=== PATIENT | male | born 1945 | race Hispanic/Latino ===

== ENCOUNTER 2017-04-20 16:53 | Inpatient (IN) | payer MEDICARE, OTHER ==
[2017-04-20 16:55] VITALS: BMI 30.5
[2017-04-20] MEDS ORDERED: Sodium Chloride 0.9% 1,000 ML IV STA ×2 (17:21→21:13)
[2017-04-20] MEDS ORDERED: HYDROmorphone 1 mg/ml ISec IVP STA (17:23)
--- NOTE | 2017-04-20 17:48 | ED PDOC ---
Arrival/HPI - General Chief Complaint: Abdominal Pain Time Seen by Provider: 04/20/17 17:14 Historian: Patient - History of Present Illness Narrative History of Present Illness (Text): 04/20/17 17:48 A 72 year old male, whose past medical history AICD, presents to the emergency department complaining of right upper quadrant abdominal pain. Patient reports 11:00 am today he developed right upper quadrant pain. Notes feels similar to previous hernia. Patient denies smoking and drinking. Patient denies any nausea , vomiting, diarrhea, genitourinary symptoms or any other complaints at this time. Time/Duration: 4-6 hours Symptom Onset: Sudden Symptom Course: Unchanged Activities at Onset: Rest Context: Home Associated Symptoms (Text): 04/20/17 18:53 Previous ventral hernia. Right upper quadrant pain similar to previous hernia. No nausea vomiting or diarrhea. No genitourinary symptoms. No radiation. No chest pain palpitations or dyspnea. He does have a golf ball sized hernia in the right upper quadrant which I am unable to reduce. He did feel better after Dilaudid, I was still unable to reduce the hernia. Past Medical History - Provider Review Nursing Documentation Reviewed: Yes - Infectious Disease Hx of Infectious Diseases: None - Tetanus Immunization Tetanus Immunization: Unknown - Cardiac Hx Cardiac Disorders: (idiopathic cardiomyopathy) Hx Cardiac Arrhythmia: Yes Hx Congestive Heart Failure: Yes Hx Hypertension: Yes Hx Internal Defibrillator: Yes (medtronic) Other/Comment: valvular heart disease - Pulmonary Hx Respiratory Disorders: Yes Hx Pneumonia: Yes - Neurological Hx Neurological Disorder: No - HEENT Hx HEENT Disorder: Yes (eyeglasses, contact lenses) - Renal Hx Renal Disorder: No - Endocrine/Metabolic Hx Endocrine Disorders: Yes Hx Hypothyroidism: Yes - Hematological/Oncological Hx Blood Disorders: No - Integumentary Hx Dermatological Disorder: No - Musculoskeletal/Rheumatological Hx Musculoskeletal Disorders: No Hx Falls: No - Gastrointestinal Hx Gastrointestinal Disorders: Yes (Hx of AP (about age 11); Inguinal Hernia Repair.) - Genitourinary/Gynecological Hx Genitourinary Disorders: No - Psychiatric Hx Psychophysiologic Disorder: No Hx Depression: No Hx Emotional Abuse: No Hx Physical Abuse: No Hx Substance Use: No - Surgical History Hx Appendectomy: Yes (1959 [facility]) Hx Cardiac Catheterization: Yes Other/Comment: tonsillectomy 1953 [facility] right knee cap reconstruction [address] [facility] [place] dr lazarus morrison spinal fusion c 3 4 5 [facility] tx dr coon, icd implantation 1997 [facility] [place] dr lyric young, icd replacement 2009 [facility] [place] robert franklin ablation 2012 [facility] [place] robert franklin icd replacement 2013 [facility] [place] robert franklin, ablation 2013 [facility] [place] robert franklin, [facility] catherization [address] [facility] [address] noreen celestin - Anesthesia Hx Anesthesia: Yes Hx Anesthesia Reactions: Yes (Coma) Hx Malignant Hyperthermia: No - Suicidal Assessment Feels Threatened In Home Enviroment: No Family/Social History - Physician Review Nursing Documentation Reviewed: Yes Family/Social History: Unknown Family HX Smoking Status: Never Smoked Hx Alcohol Use: No Hx Substance Use: No Hx Substance Use Treatment: No Allergies/Home Meds Allergies/Adverse Reactions: Allergies morphine Allergy (Verified 04/20/17 17:07) .hallucinations Home Medications: Home Meds Medication Instructions Recorded Confirmed Amiodarone [Cordarone] 200 mg PO DAILY 06/02/12 04/20/17 Aspirin [Aspir 81] 81 mg PO DAILY 06/02/12 04/20/17 Mexiletine 200 mg PO TID 07/20/12 04/20/17 Atorvastatin [Lipitor] 20 mg PO DAILY 01/31/14 04/20/17 Levothyroxine [Synthroid] 0.025 mg PO DAILY 12/05/14 04/20/17 Carvedilol [Coreg] 25 mg PO BID 03/06/16 04/20/17 Digoxin [Lanoxin] 0.125 mg PO DAILY 03/06/16 04/20/17 Furosemide [Lasix] 80 mg PO .EVENING 03/06/16 04/20/17 Zolpidem [Ambien] 10 mg PO HS PRN 03/06/16 04/20/17 Review of Systems - Physician Review All systems were reviewed & negative as marked: Yes - Review of Systems Gastrointestinal: Abdominal Pain (RUQ). absent: Diarrhea, Nausea, Vomiting Genitourinary Male: absent: Dysuria, Frequency, Hematuria Physical Exam Vital Signs Reviewed: Yes Vital Signs Temp Pulse Resp BP Pulse Ox 04/20/17 17:03 98.4 F 73 16 140/72 98 Temperature: Afebrile Blood Pressure: Normal Pulse: Regular Respiratory Rate: Normal Appearance: Positive for: Well-Appearing, Non-Toxic, Uncomfortable Pain Distress: Mild Mental Status: Positive for: Alert and Oriented X 3 - Systems Exam Head: Present: Atraumatic, Normocephalic Pupils: Present: PERRL Extroacular Muscles: Present: EOMI Conjunctiva: Present: Normal Mouth: Present: Moist Mucous Membranes Pharnyx: No: ERYTHEMA, EXUDATE, TONSILS ENLARGED Neck: Present: Normal Range of Motion Respiratory/Chest: Present: Clear to Auscultation, Good Air Exchange. No: Respiratory Distress, Accessory Muscle Use Cardiovascular: Present: Regular Rate and Rhythm, Normal S1, S2. No: Murmurs Abdomen: Present: Tenderness, Normal Bowel Sounds, Hernias (golf ball sized incisional hernia in RUQ, unable to reduce with moderate tenderness). No: Distention, Peritoneal Signs, Rebound, Guarding Back: Present: Normal Inspection Upper Extremity: Present: Normal Inspection. No: Cyanosis, Edema Lower Extremity: Present: Normal Inspection. No: Edema Neurological: Present: GCS=15, CN II-XII Intact, Speech Normal, Motor Func Grossly Intact Skin: Present: Warm, Dry, Normal Color. No: Rashes Psychiatric: Present: Alert, Oriented x 3, Normal Insight, Normal Concentration Medical Decision Making ED Course and Treatment: 04/20/17 17:46 Impression: A 72 year old male with right upper quadrant abdominal pain. Plan: -- EKG -- chest xray -- CT abd/pelvis -- labs -- Urinalysis -- IV fluids, Zofran, Dilaudid -- Reassess and disposition Prior Visits: Notes and results from previous visits were reviewed. Patient was last seen in the emergency department on 03/06/16 for evaluation of dizziness and generalized weakness. Progress Notes: 04/20/17 18:22 CT Abdomen and Pelvis without Oral or IV contrast Creator : Carol Calhoun MD IMPRESSION: Fluid-filled dilated small bowel loops with decompressed small bowel loops distally; appearance concerning for small bowel obstruction. Correlate clinically. Extensive diverticulosis without CT evidence of acute diverticulitis. Moderate constipation. 16 mm fat containing right ventral hernia. 10 mm fat containing midline ventral hernia. Gastroesophageal reflux. Additional findings as above. 04/20/17 19:02 EKG is pacing rate approximately 60 04/20/17 19:33 Dr. Barone will see the patient in consultation - Lab Interpretations Lab Results: 04/20/17 17:43 04/20/17 17:43 Lab Results 04/20/17 17:43: Sodium 139, Potassium 4.4, Chloride 98, Carbon Dioxide 33, Anion Gap 13, BUN 30 H, Creatinine 1.8 H, Est GFR ( Amer) 45, Est GFR ( Non-Af Amer) 37, Random Glucose 117 H, Calcium 9.9, Total Bilirubin 0.6, AST 31 , ALT 29, Alkaline Phosphatase 110, Lactate Dehydrogenase 716 H, Total Creatine Kinase 67, Troponin I 0.02, Total Protein 8.5 H, Albumin 4.6, Globulin 3.9, Albumin/Globulin Ratio 1.2, Lipase 48 04/20/17 17:43: PT 13.0 H, INR 1.19 H, APTT 29.1 04/20/17 17:43: WBC 14.1 H D, RBC 4.34, Hgb 14.3, Hct 43.2, MCV 99.5, MCH 32.9, MCHC 33.1, RDW 14.4, Plt Count 290, MPV 10.4, Gran % 76.7 H, Lymph % (Auto) 14.3 L, Rabun % (Auto) 7.2 H, Eos % (Auto) 1.6, Baso % (Auto) 0.2, Gran # 10.82 H , Lymph # 2.0, Rabun # 1.0 H, Eos # 0.2, Baso # 0.03 I have reviewed the lab results: Yes - RAD Interpretation Radiology Orders: 04/20/17 17:21 ABD & PELVIS W/O PO OR IV CONT [CT] Stat 04/20/17 17:22 CHEST PORTABLE [RAD] Stat - EKG Interpretation Interpreted by ED Physician: Yes Type: 12 lead EKG - Medication Orders Current Medication Orders: Sodium Chloride (Sodium Chloride 0.9%) 1,000 mls @ 100 mls/hr IV .Q10H STA Stop: 04/21/17 03:20 Last Admin: 04/20/17 17:56 Dose: 100 mls/hr eMAR Start Stop Document 04/20/17 17:56 MS (Rec: 04/20/17 17:56 [place] [id number] Intravenous Solution Start Date 04/20/17 Start Time 17:40 End Date 04/20/17 End time 18:40 Total Infusion Time 60 Discontinued Medications Hydromorphone HCl (Dilaudid) 1 mg IVP STAT STA Stop: 04/20/17 17:24 Last Admin: 04/20/17 17:40 Dose: 1 mg MAR Pain Assessment Document 04/20/17 17:40 MS (Rec: 04/20/17 17:[address] [email or web address] Pain Reassessment Is this a pain reassessment? Yes Sleep Is patient sleeping during reassessment? No Presence of Pain Presence of Pain Yes Pain Scale Used Pain Scale Used Numeric Location Left, Right or Bilateral Right Upper or Lower Upper Pain Location Body Site Abdomen Description Description Intermittent Intensity of Pain at present 8 Pain Behavior Guarding Withdrawal from Touch Aggravating Factors Changing Position IVP Administration Document 04/20/17 17:40 MS (Rec: 04/20/17 17:57 MS [id number] Charges for Administration # of IVP Administrations 1 Ondansetron HCl (Zofran Inj) 4 mg IVP STAT STA Stop: 04/20/17 17:22 Last Admin: 04/20/17 17:40 Dose: 4 mg IVP Administration Document 04/20/17 17:40 MS (Rec: 04/20/17 17:[address] [id number] Charges for Administration # of IVP Administrations 1 - Scribe Statement The provider has reviewed the documentation as recorded by the Robert Aguilar Provider Scribe Attestation: All medical record entries made by the Scribe were at my direction and personally dictated by me. I have reviewed the chart and agree that the record accurately reflects my personal performance of the history, physical exam, medical decision making, and the department course for this patient. I have also personally directed, reviewed, and agree with the discharge instructions and disposition. Disposition/Present on Arrival - Present on Arrival Any Indicators Present on Arrival: No History of DVT/PE: No History of Uncontrolled Diabetes: No Urinary Catheter: No History of Decub. Ulcer: No History Surgical Site Infection Following: None - Disposition Have Diagnosis and Disposition been Completed?: Yes Diagnosis: Ventral hernia, Ventral hernia with bowel obstruction Disposition: HOSPITALIZED Disposition Time: 19:30 Patient Plan: Admission Patient Problems: Current Active Problems Problem Status Onset Ventral hernia Acute Ventral hernia with bowel obstruction Acute Condition: GOOD Referrals: Carlos Sifuentes MD [Primary Care Provider] - Follow up with primary Forms: [employer] (Scottish)
[2017-04-20 17:54] LABS: BASO # 0.03 K/mm3 (0.0-2.0); BASO % 0.2 % (0.0-3.0); EOS # 0.2 (0.0-0.7); EOS % 1.6 % (1.5-5.0); GRAN # 10.82 (1.4-6.5); GRAN % 76.7 % (50.0-68.0); HEMATOCRIT 43.2 % (42.0-52.0); LYMPH % 14.3 % (22.0-35.0); MEAN CELL VOLUME 99.5 fl (80.0-105.0); MEAN CORPUSCULAR HEMOGLOBIN 32.9 pg (25.0-35.0); MEAN CORPUSCULAR HGB CONC 33.1 g/dl (31.0-37.0); MEAN PLATELET VOLUME 10.4 fl (7.0-11.0); MONO % 7.2 % (1.0-6.0); RED CELL DISTRIBUTION WIDTH 14.4 % (11.5-14.5); WHITE BLOOD COUNT 14.1 10^3/ul (4.5-11.0)
[2017-04-20 18:08] LABS: INR 1.19 (0.93-1.08); PARTIAL THROMBOPLASTIN TIME 29.1 Seconds (25.1-36.5)
[2017-04-20 18:14] LABS: TROPONIN I 0.02 ng/mL
[2017-04-20 18:20] LABS: ALB/GLOB RATIO 1.2 (1.1-1.8); BILIRUBIN,TOTAL 0.6 mg/dL (0.2-1.3); CALCIUM 9.9 mg/dL (8.4-10.5); POTASSIUM 4.4 mmol/L (3.6-5.0); TOTAL PROTEIN 8.5 g/dL (5.8-8.3)
--- NOTE | 2017-04-20 18:20 | CT ---
PROCEDURE: CT Abdomen and Pelvis without Oral or IV contrast. HISTORY: ventral hernia COMPARISON: None available. TECHNIQUE: Contiguous axial images of the abdomen and pelvis. No oral or IV contrast administered. Coronal and Sagittal reformats generated. Radiation dose: Total exam DLP = 903.90 mGy-cm. This CT exam was performed using one or more of the following dose reduction techniques: Automated exposure control, adjustment of the mA and/or kV according to patient size, and/or use of iterative reconstruction technique. FINDINGS: There is limited evaluation of the solid organs without the administration of IV contrast. LOWER THORAX: No visible consolidation, pleural effusion, or pneumothorax. Partially imaged cardiac pacer wires. LIVER: Unremarkable unenhanced appearance. GALLBLADDER AND BILE DUCTS: Unremarkable unenhanced appearance. PANCREAS: Unremarkable unenhanced appearance. SPLEEN: Unremarkable unenhanced appearance. ADRENALS: Unremarkable unenhanced appearance. KIDNEYS AND URETERS: No hydronephrosis or obstructing renal calculus. Punctate nonobstructing bilateral renal calcifications. BLADDER: The urinary bladder appears unremarkable. REPRODUCTIVE: Prostate calcifications. APPENDIX: The appendix is not identified. No secondary signs of acute appendicitis. BOWEL: The stomach is nondistended. Lack of oral contrast limits evaluation for bowel pathology. Fluid-filled dilated small bowel loops with decompressed small bowel loops distally; appearance concerning for small bowel obstruction. Extensive diverticulosis without CT evidence of acute diverticulitis. Moderate constipation. PERITONEUM: No significant free fluid. No definite free air. LYMPH NODES: No bulky lymphadenopathy identified. VASCULATURE: No aortic aneurysm. BONES: Degenerative changes of the spine. OTHER FINDINGS: 16 mm fat containing right ventral hernia. 10 mm fat containing midline ventral hernia. Gastroesophageal reflux. IMPRESSION: Fluid-filled dilated small bowel loops with decompressed small bowel loops distally; appearance concerning for small bowel obstruction. Correlate clinically. Extensive diverticulosis without CT evidence of acute diverticulitis. Moderate constipation. 16 mm fat containing right ventral hernia. 10 mm fat containing midline ventral hernia. Gastroesophageal reflux. Additional findings as above.
--- NOTE | 2017-04-20 20:34 | CP.PCM.HP ---
History of Present Illness - History of Present Illness History of Present Illness: CC: Abdominal Pain Subjective: HPI: Patient is a 72 year old male with a past medical history includes AICD, idiopathic cardiomyopathy, hx of ventricular tachycardia with syncope, s/p ablation therapy, MR, CHF, HTN, HLD, hypothyroidism, pna, who presents to the emergency department for evaluation and treatment of abdominal pain localized to the ventral region superior to the umbilicus. States the pain began at noon after eating lunch around noon. Denies N/V. Experienced nonbloody BM this morning. States he felt hernia redevelop over the past year and a half but experienced no symptoms until today. Patient denies intractable headache, fever, chills, dizziness, blurry vision, ringing in the ears, chest pain, shortness of breath, nausea, vomiting, diarrhea, constipation, and urinary symptoms. 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 spironolactone PMD: Dr. Sifuentes Cardio: Dr. Re[facility] Health Unit Clerk: [facility] Physical Examination: - Constitutional Appears: Non-toxic, No Acute Distress - Head Exam Head Exam: atraumatic, normocephalic - Eye Exam Eye Exam: Normal appearance, PERRL. absent: Scleral icterus - ENT Exam ENT Exam: Mucous Membranes Moist - Neck Exam Neck exam: Normal Inspection - Respiratory Exam Respiratory Exam: Normal Breathing Pattern - Cardiovascular Exam Cardiovascular Exam: +S1, +S2. absent: Gallop, JVD - GI/Abdominal Exam GI & Abdominal Exam: ventral hernia non reducible, Tender to palpation, positive guarding - Extremities Exam Extremities exam: Negative for: calf tenderness - Neurological Exam Neurological exam: Patient is awake, alert, responds to verbal stimuli, answers questions appropriately, follows commands, and moves extremities past midline - Psychiatric Exam Psychiatric exam: Normal Affect, Normal Mood - Skin Skin Exam: warm and dry Assessment and Plan: Patient is a 72 year old male with a past medical history includes AICD, idiopathic cardiomyopathy, hx of ventricular tachycardia with syncope, s/p ablation therapy, MR, CHF, HTN, HLD, hypothyroidism, pna, who presents to the emergency department for evaluation and treatment of right upper quadrant abdominal pain. Abdominal Pain; SBO - CT of the abdomen/ pelvis- reviewed and appreciated - Fluid-filled dilated small bowel loops with decompressed small bowel loops distally; appearance concerning for small bowel obstruction. Extensive diverticulosis without CT evidence of acute diverticulitis. Moderate constipation. 16 mm fat containing right ventral hernia. 10 mm fat containing midline ventral hernia. Gastroesophageal reflux - NPO - IVF NS @ 60 due to CHF low EF - general surgery consulted- appreciate recommendations - prn zofran Idiopathic cardiomyopathy, hx of ventricular tachycardia with syncope, s/p ablation therapy, MR - HR and BP reviewed, trended, and appreciated - continue home amiodarone, coreg, digoxin, mexiletine with holding parameters - cardiology consulted- appreciate recommendations Chronic CHF - HR and BP reviewed, trended, and appreciated - strict i and o - daily weight - hold lasix and spironolactone to IVF - previous ECHO reviewed and appreciated-- LVEF 16%, LV severely dilated, severe global hypokinesis; repeat ECHO per cardiology - consider repeating CXR/ attaining chest CT pending patient clinical course ANNAMARIA - creatinine and Bun reviewed, trended, and appreciated - avoid nephrotoxins - continue IVF NS @ 60 - consider nephrology consult pending patients clinical course Hx of CAD - c/w aspirin - c/w statin Hx of Htn - c/w coreg e with holding parameters Hx of Hyperlipidemia - c/w statin - lipid profile pending Hx of Hypothyroidism - continue with home synthroid - TSH pending Hx of Insomina - hold home Ambien as patient will be receiving dilaudid as well Prophylaxis - DVT ppx- subq heparin + SCD as per daisy score - GI ppx- famotidine Patient case discussed with and plan approved by attending physician. 04/20/17 20:22 Present on Admission - Present on Admission Any Indicators Present on Admission: No Past Patient History - Infectious Disease Hx of Infectious Diseases: None - Tetanus Immunizations Tetanus Immunization: Unknown - Past Social History Smoking Status: Never Smoked - CARDIAC Hx Cardiac Disorders: (idiopathic cardiomyopathy) Hx Cardia Arrhythmia: Yes Hx Congestive Heart Failure: Yes Hx Hypertension: Yes Hx Internal Defibrillator: Yes (medtronic) Other/Comment: valvular heart disease - PULMONARY Hx Respiratory Disorders: Yes Hx Pneumonia: Yes - NEUROLOGICAL Hx Neurological Disorder: No - HEENT Hx HEENT Problems: Yes (eyeglasses, contact lenses) - RENAL Hx Chronic Kidney Disease: No - ENDOCRINE/METABOLIC Hx Endocrine Disorders: Yes Hx Hypothyroidism: Yes - HEMATOLOGICAL/ONCOLOGICAL Hx Blood Disorders: No - INTEGUMENTARY Hx Dermatological Problems: No - MUSCULOSKELETAL/RHEUMATOLOGICAL Hx Musculoskeletal Disorders: No Hx Falls: No - GASTROINTESTINAL Hx Gastrointestinal Disorders: Yes (Hx of AP (about age 11); Inguinal Hernia Repair.) - GENITOURINARY/GYNECOLOGICAL Hx Genitourinary Disorders: No - PSYCHIATRIC Hx Psychophysiologic Disorder: No Hx Depression: No Hx Emotional Abuse: No Hx Physical Abuse: No Hx Substance Use: No - SURGICAL HISTORY Hx Appendectomy: Yes (1959 [facility]) Hx Cardiac Catheterization: Yes Other/Comment: tonsillectomy 1953 [facility] right knee cap reconstruction 1987 [facility] dr lazarus morrison spinal fusion c 3 [address] [facility] [address] coon, icd implantation [address] [facility] [place] lyric young, [place] 2009 [facility] [place] 2012 [facility] [place]d [place] 2013 [facility] [place]lin, [place] 2013 [facility] [place]lin, [place] catherization [address] [facility] [address] noreen celestin - ANESTHESIA Hx Anesthesia: Yes Hx Anesthesia Reactions: Yes (Coma) Hx Malignant Hyperthermia: No Meds Allergies/Adverse Reactions: Allergies Allergy/AdvReac Type Severity Reaction Status Date / Time morphine Allergy .hallucinat Verified 04/20/17 17:07 ions Results - Vital Signs Recent Vital Signs: Last Vital Signs Temp 98.4 F 04/20/17 17:03 Pulse 62 04/20/17 20:10 Resp 14 04/20/17 20:20 BP 109/54 L 04/20/17 20:10 Pulse Ox 94 L 12/11/17 20:20 - Labs Result Diagrams: 04/20/17 17:43 04/20/17 17:43 Labs: Laboratory Results - last 24 hr 04/20/17 04/20/17 04/20/17 17:43 17:43 17:43 WBC 14.1 H D RBC 4.34 Hgb 14.3 Hct 43.2 MCV 99.5 MCH 32.9 MCHC 33.1 RDW 14.4 Plt Count 290 MPV 10.4 Gran % 76.7 H Lymph % (Auto) 14.3 L Starke % (Auto) 7.2 H Eos % (Auto) 1.6 Baso % (Auto) 0.2 Gran # 10.82 H Lymph # 2.0 Starke # 1.0 H Eos # 0.2 Baso # 0.03 PT 13.0 H INR 1.19 H APTT 29.1 Sodium 139 Potassium 4.4 Chloride 98 Carbon Dioxide 33 Anion Gap 13 BUN 30 H Creatinine 1.8 H Est GFR ( Amer) 45 Est GFR (Non-Af Amer) 37 Random Glucose 117 H Calcium 9.9 Total Bilirubin 0.6 AST 31 ALT 29 Alkaline Phosphatase 110 Lactate Dehydrogenase 716 H Total Creatine Kinase 67 Troponin I 0.02 Total Protein 8.5 H Albumin 4.6 Globulin 3.9 Albumin/Globulin Ratio 1.2 Lipase 48
--- NOTE | 2017-04-20 21:54 | CP.PCM.CON ---
History of Present Illness - History of Present Illness History of Present Illness: Surgery Consult: Dr. Barone Pt is a 72M with PMHx significant for CHF, idiopathic cardiomyopathy, ventricular tachycardia s/p AICD, MR, HLD & hypothyroidism who presents to [facility] with complaints of abdominal pain. Pt states he was having lunch earlier today and had a sudden bout of sharp abdominal pain where his ventral hernia is located. Pt reports having ventral hernia repaired in 2007, however, states it recurred over the last year. Pt denies having symptoms for the past year and states his hernia would bulge out upon bearing down but otherwise it did not bother him until earlier today. He denies any associated N/V, F/C. States his last BM was this morning and admits to flatus. In the ER, a CT abdomen pelvis was obtained and shows fat containing ventral hernia. Surgery consulted to evaluate. Currently, pt is walking around his room and states he's feeling a lot better compared to when he arrived. States pain medication given in the ER helped. Admits to discomfort in the anterior abdomen around ventral hernia. Denies any other complaints. PMHx: as stated above PSHx: AICD placement, ventral hernia repair, appendectomy, tonsillectomy SocialHx: denies smoking or EtOH Review of Systems - Review of Systems All systems: reviewed and no additional remarkable complaints except (as per HPI ) Past Patient History - Infectious Disease Hx of Infectious Diseases: None - Tetanus Immunizations Tetanus Immunization: Unknown - Past Social History Smoking Status: Never Smoked - CARDIAC Hx Cardiac Disorders: (idiopathic cardiomyopathy) Hx Cardia Arrhythmia: Yes Hx Congestive Heart Failure: Yes Hx Hypertension: Yes Hx Internal Defibrillator: Yes (medtronic) Other/Comment: valvular heart disease - PULMONARY Hx Respiratory Disorders: Yes - NEUROLOGICAL Hx Neurological Disorder: No - HEENT Hx HEENT Problems: Yes (eyeglasses, contact lenses) - ENDOCRINE/METABOLIC Hx Endocrine Disorders: Yes Hx Hypothyroidism: Yes - HEMATOLOGICAL/ONCOLOGICAL Hx Blood Disorders: No - INTEGUMENTARY Hx Dermatological Problems: No - MUSCULOSKELETAL/RHEUMATOLOGICAL Hx Musculoskeletal Disorders: No Hx Falls: No - GENITOURINARY/GYNECOLOGICAL Hx Genitourinary Disorders: No - PSYCHIATRIC Hx Psychophysiologic Disorder: No Hx Depression: No Hx Emotional Abuse: No Hx Physical Abuse: No Hx Substance Use: No - SURGICAL HISTORY Hx Surgeries: Yes Hx Appendectomy: Yes Hx Cardiac Catheterization: Yes Hx Herniorrhaphy: Yes Hx Tonsillectomy: Yes - ANESTHESIA Hx Anesthesia: Yes Hx Anesthesia Reactions: Yes (Coma) Hx Malignant Hyperthermia: No Meds Allergies/Adverse Reactions: Allergies Allergy/AdvReac Type Severity Reaction Status Date / Time morphine Allergy .robertoinat Verified 04/20/17 17:07 ions - Medications Medications: Current Medications Amiodarone HCl (Cordarone) 200 mg PO DAILY [facility] Aspirin (Ecotrin) 81 mg PO DAILY [facility] Atorvastatin Calcium (Lipitor) 20 mg PO DAILY [facility] Carvedilol (Coreg) 25 mg PO BID [facility] Digoxin (Lanoxin) 0.125 mg PO DAILY [facility] Famotidine (Pepcid) 20 mg IVP DAILY [facility] Heparin Sodium (Porcine) (Heparin) 5,000 units SC Q8 [facility] PRN Reason: Protocol Hydromorphone HCl (Dilaudid) 0.5 mg IVP Q6H PRN PRN Reason: Pain, moderate (4-7) Sodium Chloride (Sodium Chloride 0.9%) 1,000 mls @ 60 mls/hr IV .[id number] STA Stop: 04/21/17 13:52 Levothyroxine Sodium (Synthroid) 50 mcg PO ACB [facility] Non-Formulary Medication (Mexiletine [Mexiletine]) 200 mg PO TID [facility] Ondansetron HCl (Zofran Inj) 4 mg IVP Q6H PRN PRN Reason: Nausea/Vomiting Physical Exam - Constitutional Appears: Well, No Acute Distress - Head Exam Head Exam: ATRAUMATIC, NORMOCEPHALIC - Eye Exam Eye Exam: Normal appearance - ENT Exam ENT Exam: Mucous Membranes Moist - Respiratory Exam Respiratory Exam: NORMAL BREATHING PATTERN - Cardiovascular Exam Cardiovascular Exam: RRR - GI/Abdominal Exam GI & Abdominal Exam: Soft, Tenderness (around incarcerated ventral hernia ). absent: Distended, Guarding, Rebound - Neurological Exam Neurological exam: Alert, Oriented x3 - Skin Skin Exam: Dry, Warm Results - Vital Signs Recent Vital Signs: Last Vital Signs Temp 98.4 F 04/20/17 17:03 Pulse 62 04/20/17 20:10 Resp 14 04/20/17 20:20 BP 109/54 L 04/20/17 20:10 Pulse Ox 94 L 04/20/17 20:20 - Labs Result Diagrams: 04/20/17 17:43 04/20/17 17:43 - Imaging and Cardiology CT scan - abdomen Status: Image reviewed by me, Report reviewed by me Assessment & Plan - Assessment and Plan (Free Text) Assessment: 72M with incarcerated ventral hernia Plan: - At this time, pt is not clinically obstructed & not actively vomiting. Will hold off on NGT unless he becomes symptomatic - Apply Ice pack to ventral hernia - Serial abdominal exams - NPO, IVF, pain management - Will need surgical repair of hernia defect. However, due to his extensive cardiac hx will need risk stratification by cardio - Recommend Dulcolax suppository PRN for relief of constipation - d/w Dr. Abisai Erazo, PGY-3 Surgery
[2017-04-20] MEDS: HYDROmorphone 0.5 mg/0.5 ml ISec IVP PRN (22:21)
[2017-04-21] MEDS ORDERED: HYDROmorphone 0.5 mg/0.5 ml ISec IVP STA (00:41)
[2017-04-21] MEDS: HYDROmorphone 0.5 mg/0.5 ml ISec IVP PRN (04:04)
[2017-04-21 06:55] LABS: BASO # 0.02 K/mm3 (0.0-2.0); BASO % 0.2 % (0.0-3.0); EOS # 0.1 (0.0-0.7); GRAN # 9.99 (1.4-6.5); GRAN % 79.2 % (50.0-68.0); HEMATOCRIT 41.9 % (42.0-52.0); LYMPH # 1.4 (1.2-3.4); LYMPH % 11.4 % (22.0-35.0); MEAN CELL VOLUME 100.2 fl (80.0-105.0); MEAN CORPUSCULAR HEMOGLOBIN 32.3 pg (25.0-35.0); MEAN CORPUSCULAR HGB CONC 32.2 g/dl (31.0-37.0); MEAN PLATELET VOLUME 10.1 fl (7.0-11.0); MONO % 8.2 % (1.0-6.0); RED CELL DISTRIBUTION WIDTH 14.1 % (11.5-14.5); WHITE BLOOD COUNT 12.6 10^3/ul (4.5-11.0)
[2017-04-21 07:19] LABS: ALB/GLOB RATIO 1.2 (1.1-1.8); ALKALINE PHOSPHATASE 104 U/L (38-126); ALT/SGPT 30 U/L (7-56); AST/SGOT 25 U/L (17-59); BILIRUBIN,TOTAL 0.6 mg/dL (0.2-1.3); BLOOD UREA NITROGEN 24 mg/dL (7-21); CALCIUM 9.7 mg/dL (8.4-10.5); CARBON DIOXIDE 32 mmol/L (21-33); CHLORIDE 101 mmol/L (98-107); CHOLESTEROL 155 mg/dL (130-200); GFR AFRICAN-AMERICAN > 60; GLUCOSE,RANDOM 140 mg/dL (70-110); POTASSIUM 4.6 mmol/L (3.6-5.0); SODIUM 144 mmol/L (132-148); TOTAL PROTEIN 7.8 g/dL (5.8-8.3)
--- NOTE | 2017-04-21 08:05 | CP.PCM.PN ---
Subjective - Date & Time of Evaluation Date of Evaluation: 04/21/17 Time of Evaluation: 08:02 - Subjective Subjective: Surgery Progress Note for Dr. Barone Pt seen and examined at bedside. Pt states that he still has some abdominal pain , but admits to vomiting several times this AM. Pt denied CP, SOB, diarrhea, constipation, fever, chills, GERBER, or dizziness. Objective - Vital Signs/Intake and Output Vital Signs (last 24 hours): Temp Pulse Resp BP Pulse Ox 98.4 F 60 19 139/81 94 L 04/21/17 00:35 04/21/17 00:35 04/21/17 00:35 04/21/17 00:35 04/20/17 20:20 Intake and Output: 04/21/17 04/21/17 06:59 18:59 Intake Total 0 Output Total 200 Balance -200 - Medications Medications: Current Medications Amiodarone HCl (Cordarone) 200 mg PO DAILY [facility] Aspirin (Ecotrin) 81 mg PO DAILY [facility] Atorvastatin Calcium (Lipitor) 20 mg PO DAILY [facility] Carvedilol (Coreg) 25 mg PO BID [facility] Digoxin (Lanoxin) 0.125 mg PO DAILY [facility] Heparin Sodium (Porcine) (Heparin) 5,000 units SC Q8 [facility] PRN Reason: Protocol Last Admin: 04/20/17 22:21 Dose: 5,000 units Hydromorphone HCl (Dilaudid) 0.5 mg IVP Q6H PRN PRN Reason: Pain, moderate (4-7) Last Admin: 04/21/17 04:04 Dose: 0.5 mg Sodium Chloride (Sodium Chloride 0.9%) 1,000 mls @ 60 mls/hr IV .[id number] STA Stop: 04/21/17 13:52 Last Admin: 04/21/17 00:50 Dose: 60 mls/hr Levothyroxine Sodium (Synthroid) 50 mcg PO ACB [facility] Non-Formulary Medication (Mexiletine [Mexiletine]) 200 mg PO TID [facility] Ondansetron HCl (Zofran Inj) 4 mg IVP Q6H PRN PRN Reason: Nausea/Vomiting Last Admin: 04/21/17 00:54 Dose: 4 mg - Labs Labs: 04/21/17 06:15 04/21/17 06:15 PT 13.0 SECONDS (9.4-12.5) H 12/11/17 17:43 INR 1.19 (0.93-1.08) H 04/20/17 17:43 APTT 29.1 Seconds (25.1-36.5) 04/20/17 17:43 - Constitutional Appears: No Acute Distress - Head Exam Head Exam: NORMAL INSPECTION - Eye Exam Eye Exam: Normal appearance Pupil Exam: NORMAL ACCOMODATION - ENT Exam ENT Exam: Normal Exam - Neck Exam Neck Exam: Normal Inspection - Respiratory Exam Respiratory Exam: NORMAL BREATHING PATTERN. absent: Accessory Muscle Use, Respiratory Distress - Cardiovascular Exam Cardiovascular Exam: RRR. absent: Gallop, Rubs, Murmur - GI/Abdominal Exam GI & Abdominal Exam: Soft, Tenderness (around incarcerated ventral hernia). absent: Distended, Guarding, Rebound - Extremities Exam Extremities Exam: Normal Inspection - Neurological Exam Neurological Exam: Alert, Awake, Oriented x3 - Skin Skin Exam: Dry, Intact, Normal Color, Warm Assessment and Plan - Assessment and Plan (Free Text) Assessment: 72 yo M with incarcerated ventral hernia Plan: - NGT placed as patient still vomiting this AM Placement confirmed with CXR - Apply ice pack to ventral hernia, will attempt manual reduction - NPO, IVF, pain management - Will need surgical intervention for ventral hernia, but needs cardiac clearance first - Recommend Dulcolax suppository PRN for constipation - SEGUN Saleh, PGY1
--- NOTE | 2017-04-21 08:49 | RAD ---
HISTORY: OR COMPARISON: 03/06/2016 FINDINGS: LUNGS: The lungs are well inflated and clear. PLEURA: No significant pleural effusion identified, no pneumothorax apparent. CARDIOVASCULAR: The heart is normal in size. There is stable position of a left-sided pacemaker. OSSEOUS STRUCTURES: No significant abnormalities. VISUALIZED UPPER ABDOMEN: Normal. OTHER FINDINGS: None. IMPRESSION: No active pulmonary disease.
--- NOTE | 2017-04-21 09:09 | CP.PCM.PN ---
Subjective - Date & Time of Evaluation Date of Evaluation: 04/21/17 Time of Evaluation: 07:00 - Subjective Subjective: Medicine progress note: Pt seen and examined at bedside. Pt reports abdominal pain has been alleviated from 8/10 severity to 4/10 after administration of pain medication. Pt reports several episodes of nonbilious/nobloody emesis overnight. Pt was seen by surgery this am, and placed NG tube. Pt denies fever, chills,chest pain, palpitations, dyspnea, cough, dizziness, headache, constipation, diarrhea or urinary symptoms. Objective - Vital Signs/Intake and Output Vital Signs (last 24 hours): Temp Pulse Resp BP Pulse Ox 98.0 F 63 18 126/73 93 L 04/21/17 08:00 04/21/17 08:00 04/21/17 08:00 04/21/17 08:00 04/21/17 08:00 Intake and Output: 04/21/17 04/21/17 06:59 18:59 Intake Total 0 Output Total 200 Balance -200 - Medications Medications: Current Medications Amiodarone HCl (Cordarone) 200 mg PO DAILY [facility] Aspirin (Ecotrin) 81 mg PO DAILY [facility] Atorvastatin Calcium (Lipitor) 20 mg PO DAILY [facility] Carvedilol (Coreg) 25 mg PO BID [facility] Digoxin (Lanoxin) 0.125 mg PO DAILY [facility] Heparin Sodium (Porcine) (Heparin) 5,000 units SC Q8 [facility] PRN Reason: Protocol Last Admin: 04/20/17 22:21 Dose: 5,000 units Hydromorphone HCl (Dilaudid) 0.5 mg IVP Q6H PRN PRN Reason: Pain, moderate (4-7) Last Admin: 04/21/17 04:04 Dose: 0.5 mg Sodium Chloride (Sodium Chloride 0.9%) 1,000 mls @ 60 mls/hr IV .[id number] STA Stop: 04/21/17 13:52 Last Admin: 04/21/17 00:50 Dose: 60 mls/hr Levothyroxine Sodium (Synthroid) 50 mcg PO ACB [facility] Non-Formulary Medication (Mexiletine [Mexiletine]) 200 mg PO TID [facility] Ondansetron HCl (Zofran Inj) 4 mg IVP Q6H PRN PRN Reason: Nausea/Vomiting Last Admin: 04/21/17 00:54 Dose: 4 mg - Labs Labs: 04/21/17 06:15 04/21/17 06:15 PT 13.0 SECONDS (9.4-12.5) H 04/20/17 17:43 INR 1.19 (0.93-1.08) H 04/20/17 17:43 APTT 29.1 Seconds (25.1-36.5) 04/20/17 17:43 - Constitutional Appears: No Acute Distress - Head Exam Head Exam: ATRAUMATIC, NORMOCEPHALIC - Eye Exam Eye Exam: EOMI, PERRL - ENT Exam ENT Exam: Mucous Membranes Moist - Respiratory Exam Respiratory Exam: Clear to Ausculation Bilateral. absent: Wheezes - Cardiovascular Exam Cardiovascular Exam: RRR, +S1, +S2 - GI/Abdominal Exam GI & Abdominal Exam: Soft, Normal Bowel Sounds. absent: Distended, Rigid, Tenderness, Organomegaly - Extremities Exam Extremities Exam: absent: Calf Tenderness, Pedal Edema - Neurological Exam Neurological Exam: Alert, Awake, Oriented x3 - Psychiatric Exam Psychiatric exam: Normal Affect, Normal Mood - Skin Skin Exam: Dry, Intact, Warm Assessment and Plan - Assessment and Plan (Free Text) Assessment: 72 year old M with pmhx of AICD, 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 1. Abdominal Pain ventral hernia vs less likely SBO - NPO - IVF NS @ 60 due to CHF low EF - prn zofran - Pain control - CT of the abdomen/ pelvis- reviewed and appreciated - Fluid-filled dilated small bowel loops with decompressed small bowel loops distally; appearance concerning for small bowel obstruction. Extensive diverticulosis without CT evidence of acute diverticulitis. Moderate constipation. 16 mm fat containing right ventral hernia. 10 mm fat containing midline ventral hernia. Gastroesophageal reflux - General surgery consulted, recs appreciated. - NG tube as per surgery team 2. Idiopathic cardiomyopathy, hx of ventricular tachycardia with syncope, s/p ablation therapy, MR - HR and BP reviewed, trended, and appreciated - continue home amiodarone, coreg, digoxin, mexiletine with holding parameters - cardiology consulted- appreciate recommendations 3. Chronic CHF - HR and BP reviewed, trended, and appreciated - strict I and O - daily weights - hold lasix and spironolactone to IVF - previous ECHO reviewed and appreciated-- LVEF 16%, LV severely dilated, severe global hypokinesis 4. ANNAMARIA - creatinine and Bun reviewed, trended, and appreciated - avoid nephrotoxins - continue IVF NS @ 60 - consider nephrology consult pending patients clinical course 5. Hx of CAD - c/w aspirin - c/w statin 6. Hx of Htn - c/w coreg e with holding parameters - Hold Entresto d/t ANNAMARIA 7. Hx of Hyperlipidemia - c/w statin - lipid profile pending 8. Hx of Hypothyroidism - continue with home synthroid - f/u TSH 9. Prophylaxis - DVT ppx- subq heparin + SCD as per daisy score - GI ppx- famotidine Case and plan was reviewed and discussed with Dr Warren.
--- NOTE | 2017-04-21 09:34 | RAD ---
HISTORY: NG tube placement COMPARISON: 04/20/2017 FINDINGS: The nasogastric tube terminates in the stomach. LUNGS: There is pulmonary venous congestion. No focal consolidation PLEURA: No significant pleural effusion identified, no pneumothorax apparent. CARDIOVASCULAR: The heart is normal in size. There is stable position of left-sided pacemaker. OSSEOUS STRUCTURES: No significant abnormalities. VISUALIZED UPPER ABDOMEN: Normal. OTHER FINDINGS: None. IMPRESSION: Nasogastric tube terminates in the stomach.
[2017-04-21] MEDS ORDERED: Levothyroxine 25 MCG TAB PO SCH (10:00)
[2017-04-21] MEDS: Levothyroxine 50 MCG TAB PO SCH (11:36)
[2017-04-21] MEDS: MEXILETINE 200 MG PO SCH ×3 (11:36→22:36)
[2017-04-21] MEDS: Digoxin 125 mcg (0.125 mg) Tab PO SCH (11:37)
--- NOTE | 2017-04-21 13:21 | RAD ---
PROCEDURE: Portable chest HISTORY: NGT placement COMPARISON: TECHNIQUE: Portable film over the lower chest and upper abdomen FINDINGS: The nasogastric tube is in satisfactory position with the tip in the region of the gastric antrum IMPRESSION: The nasogastric tube is in satisfactory position with the tip in the region of the gastric antrum
--- NOTE | 2017-04-21 13:27 | RAD ---
HISTORY: hernia COMPARISON: No prior. FINDINGS: BOWEL: Normal. No obstruction. No free air. BONES: Normal. OTHER FINDINGS: None. IMPRESSION: No active disease.
--- NOTE | 2017-04-21 17:49 | CARD ---
APPROVED REPORT EKG Measurement Heart [id number] <Conclusion> AV sequential or dual chamber electronic pacemaker
[2017-04-21] MEDS ORDERED: Sodium Chloride 0.9% 1,000 ML IV SCH (18:00)
[2017-04-21 18:12] LABS: URINE BILIRUBIN NEGATIVE (NEGATIVE); URINE BLOOD NEGATIVE (NEGATIVE); URINE GLUCOSE (UA) NEGATIVE (NEGATIVE); URINE KETONE NEGATIVE (NEGATIVE); URINE LEUKOCYTE ESTERASE NEGATIVE Leu/uL (NEGATIVE); URINE PROTEIN NEGATIVE mg/dL (<30 mg/dL); URINE UROBILINOGEN 0.2 E.U./dL (<1 E.U./dL)
[2017-04-21 18:14] LABS: URINE APPEARANCE CLEAR (CLEAR); URINE COLOR YELLOW (YELLOW)
[2017-04-21] MEDS: SACUBITRIL 97mg/ VALSARTAN 103mg tab PO SCH (19:48)
--- NOTE | 2017-04-21 22:51 | CON ---
DATE: 04/21/2017 HISTORY OF PRESENT ILLNESS: The patient is a 72-year-old male with a history of end-stage dilated cardiomyopathy treated successfully with a Bi-V pacer as well as defibrillator who has been followed by the heart failure program at [facility] in which he has been placed on Entresto. He has been free of CHF symptoms. Negative edema. Negative chest pain. He presented yesterday with recurrence of hernia with nausea and vomiting. The patient's past medical history includes a history of ventricular arrhythmias in which he has been treated on mexiletine as well as amiodarone. His heart failure symptoms have been treated successfully with Coreg, Entresto, Aldactone, Lasix, as well as digoxin. SOCIAL HISTORY: The patient does not smoke. REVIEW OF SYSTEMS: 14-point review of systems was reviewed in detail. There are no active cardiac symptoms noted. PHYSICAL EXAMINATION: VITAL SIGNS: Blood pressure 126/73, heart rate in the 60s. NECK: Negative JVD. LUNGS: Clear to auscultation. HEART: Reveals S1, S2. EXTREMITIES: Without edema. Chest x-ray reveals no active pulmonary disease. CT scan of the belly reveals extensive diverticulosis as well as dilated small-bowel loops. IMPRESSION: 1. Questionable small-bowel obstruction. 2. Hernia. 3. End-stage dilated cardiomyopathy. 4. Status post ventricular arrhythmias. 5. Good control of his congestive heart failure symptoms. Given these findings, the patient's end-stage cardiomyopathy is well managed. The patient is currently well controlled on his present medications. Although any surgery will carry an increased risk due to his end-stage cardiomyopathy, the patient is currently at his optimum cardiovascular condition. Caution must be taken that the patient is currently n.p.o. I would be worried about keeping him off his medications for any period of time where his poor LV function can decompensate. If surgery is planned, despite the increased risk, I would consider doing it sooner than later. Sage Andrew MD
[2017-04-22 04:38] VITALS: RESP 20
[2017-04-22 06:55] LABS: ALB/GLOB RATIO 1.2 (1.1-1.8); ALKALINE PHOSPHATASE 80 U/L (38-126); ALT/SGPT 27 U/L (7-56); AST/SGOT 25 U/L (17-59); BILIRUBIN,TOTAL 0.5 mg/dL (0.2-1.3); BLOOD UREA NITROGEN 17 mg/dL (7-21); CALCIUM 8.9 mg/dL (8.4-10.5); CARBON DIOXIDE 31 mmol/L (21-33); CHLORIDE 105 mmol/L (98-107); GFR AFRICAN-AMERICAN > 60; GLUCOSE,RANDOM 95 mg/dL (70-110); SODIUM 143 mmol/L (132-148); TOTAL PROTEIN 6.8 g/dL (5.8-8.3)
[2017-04-22 06:59] LABS: BASO # 0.03 K/mm3 (0.0-2.0); BASO % 0.3 % (0.0-3.0); EOS # 0.3 (0.0-0.7); EOS % 3.1 % (1.5-5.0); GRAN # 6.33 (1.4-6.5); GRAN % 70.3 % (50.0-68.0); HEMATOCRIT 39.5 % (42.0-52.0); LYMPH # 1.6 (1.2-3.4); LYMPH % 17.6 % (22.0-35.0); MEAN CELL VOLUME 101.3 fl (80.0-105.0); MEAN CORPUSCULAR HEMOGLOBIN 32.1 pg (25.0-35.0); MEAN CORPUSCULAR HGB CONC 31.6 g/dl (31.0-37.0); MEAN PLATELET VOLUME 10.4 fl (7.0-11.0); MONO # 0.8 (0.1-0.6); MONO % 8.7 % (1.0-6.0); RED CELL DISTRIBUTION WIDTH 14.5 % (11.5-14.5)
[2017-04-22] MEDS: Levothyroxine 50 MCG TAB PO SCH (08:00)
[2017-04-22] MEDS: Digoxin 125 mcg (0.125 mg) Tab PO SCH (10:39)
[2017-04-22] MEDS: MEXILETINE 200 MG PO SCH ×3 (10:40→22:55)
[2017-04-22] MEDS: SACUBITRIL 97mg/ VALSARTAN 103mg tab PO SCH ×2 (10:41→18:39)
[2017-04-22 10:48] VITALS: PULSE 67
[2017-04-22] MEDS: Dextrose 5%/0.45% NS 1,000 ML IV SCH (11:47)
--- NOTE | 2017-04-22 12:42 | CP.PCM.PN ---
Subjective - Date & Time of Evaluation Date of Evaluation: 04/22/17 Time of Evaluation: 12:37 - Subjective Subjective: Surgery Progress Note for Dr. Barone Pt seen and examined at bedside. No acute overnight events. Pt states that nausea and vomiting have resolved. NGT with 800 cc output. Pt was given meds through NGT. Pt states that abdominal pain is improved, only slight tenderness with palpation. Pt denied CP, SOB, fever, chills, GREBER, or dizziness. Objective - Vital Signs/Intake and Output Vital Signs (last 24 hours): Temp Pulse Resp BP Pulse Ox 98 F 67 20 119/62 96 04/22/17 08:42 04/22/17 10:40 04/22/17 08:42 04/22/17 10:40 04/22/17 08:42 Intake and Output: 04/22/17 04/22/17 06:59 18:59 Intake Total 1680 Output Total 1550 Balance 130 - Medications Medications: Current Medications Amiodarone HCl (Cordarone) 200 mg PO DAILY [facility] Last Admin: 04/22/17 10:40 Dose: 200 mg Aspirin (Ecotrin) 81 mg PO DAILY [facility] Atorvastatin Calcium (Lipitor) 20 mg PO DAILY [facility] Last Admin: 04/22/17 10:40 Dose: 20 mg Carvedilol (Coreg) 25 mg PO BID [facility] Last Admin: 04/22/17 10:40 Dose: 25 mg Digoxin (Lanoxin) 0.125 mg PO DAILY [facility] Last Admin: 04/22/17 10:39 Dose: 0.125 mg Heparin Sodium (Porcine) (Heparin) 5,000 units SC Q8 [facility] PRN Reason: Protocol Last Admin: 04/21/17 11:32 Dose: Not Given Home Med (Home Med) 1 unit PO Q8 [facility] Last Admin: 04/22/17 07:30 Dose: 1 unit Hydromorphone HCl (Dilaudid) 0.5 mg IVP Q6H PRN PRN Reason: Pain, moderate (4-7) Last Admin: 04/21/17 04:04 Dose: 0.5 mg Dextrose/Sodium Chloride (Dextrose 5%/0.45% Ns 1000 Ml) 1,000 mls @ 60 mls/hr IV .[id number] [facility] Last Admin: 04/22/17 11:47 Dose: 60 mls/hr Levothyroxine Sodium (Synthroid) 50 mcg PO ACB [facility] Last Admin: 04/22/17 08:00 Dose: 50 mcg Ondansetron HCl (Zofran Inj) 4 mg IVP Q6H PRN PRN Reason: Nausea/Vomiting Last Admin: 04/21/17 11:33 Dose: 4 mg Sacubitril/Valsartan (Entresto 97 Mg-103 Mg Tablet) 1 each PO BID [facility] Last Admin: 04/22/17 10:41 Dose: 1 each - Labs Labs: 04/22/17 06:20 04/22/17 06:20 PT 13.0 SECONDS (9.4-12.5) H 04/20/17 17:43 INR 1.19 (0.93-1.08) H 04/20/17 17:43 APTT 29.1 Seconds (25.1-36.5) 04/20/17 17:43 - Constitutional Appears: No Acute Distress - Head Exam Head Exam: NORMAL INSPECTION - Eye Exam Eye Exam: Normal appearance - ENT Exam ENT Exam: Normal Exam - Respiratory Exam Respiratory Exam: NORMAL BREATHING PATTERN. absent: Accessory Muscle Use, Respiratory Distress - Cardiovascular Exam Cardiovascular Exam: RRR. absent: Gallop, Rubs, Murmur - GI/Abdominal Exam GI & Abdominal Exam: Soft, Tenderness (midline). absent: Distended, Guarding, Rebound - Back Exam Back Exam: NORMAL INSPECTION - Neurological Exam Neurological Exam: Alert, Awake, Oriented x3 - Skin Skin Exam: Dry, Intact, Normal Color, Warm Assessment and Plan - Assessment and Plan (Free Text) Assessment: 72 yo M with nausea/vomiting and ventral hernia Plan: - Hernia unlikely the cause of nausea and vomiting - Advance diet to CLD as tolerated - Will remove NGT if tolerating diet - IVF, pain management - DW Dr. Abisai Saleh, PGY1
--- NOTE | 2017-04-22 13:14 | CP.PCM.PN ---
Subjective - Date & Time of Evaluation Date of Evaluation: 04/22/17 Time of Evaluation: 06:45 - Subjective Subjective: PGY [address] SIFUENTES/DR. JAVED Patient seen and evaluated on general medical floor. No acute events reported overnight. Patient indicates he feels better this morning with improvement in nausea and vomiting. Patient with improved abdominal pain, reports multiple bowel movements overnight. Patient with nasogastric suction through out the night. Patient denies chest pain, shortness of breath, headache, dizziness, diarrhea. Objective - Vital Signs/Intake and Output Vital Signs (last 24 hours): Temp Pulse Resp BP Pulse Ox 98 F 67 20 119/62 96 04/22/17 08:42 04/22/17 10:40 04/22/17 08:42 04/22/17 10:40 04/22/17 08:42 Intake and Output: 04/22/17 04/22/17 06:59 18:59 Intake Total 1680 Output Total 1550 Balance 130 - Medications Medications: Current Medications Amiodarone HCl (Cordarone) 200 mg PO DAILY [facility] Last Admin: 04/22/17 10:40 Dose: 200 mg Aspirin (Ecotrin) 81 mg PO DAILY [facility] Atorvastatin Calcium (Lipitor) 20 mg PO DAILY [facility] Last Admin: 04/22/17 10:40 Dose: 20 mg Carvedilol (Coreg) 25 mg PO BID [facility] Last Admin: 04/22/17 10:40 Dose: 25 mg Digoxin (Lanoxin) 0.125 mg PO DAILY [facility] Last Admin: 04/22/17 10:39 Dose: 0.125 mg Heparin Sodium (Porcine) (Heparin) 5,000 units SC Q8 [facility] PRN Reason: Protocol Last Admin: 04/21/17 11:32 Dose: Not Given Home Med (Home Med) 1 unit PO Q8 [facility] Last Admin: 04/22/17 07:30 Dose: 1 unit Hydromorphone HCl (Dilaudid) 0.5 mg IVP Q6H PRN PRN Reason: Pain, moderate (4-7) Last Admin: 04/21/17 04:04 Dose: 0.5 mg Dextrose/Sodium Chloride (Dextrose 5%/0.45% Ns 1000 Ml) 1,000 mls @ 60 mls/hr IV .[id number] [facility] Last Admin: 04/22/17 11:47 Dose: 60 mls/hr Levothyroxine Sodium (Synthroid) 50 mcg PO ACB [facility] Last Admin: 04/22/17 08:00 Dose: 50 mcg Ondansetron HCl (Zofran Inj) 4 mg IVP Q6H PRN PRN Reason: Nausea/Vomiting Last Admin: 04/21/17 11:33 Dose: 4 mg Sacubitril/Valsartan (Entresto 97 Mg-103 Mg Tablet) 1 each PO BID [facility] Last Admin: 04/22/17 10:41 Dose: 1 each - Labs Labs: 04/22/17 06:20 04/22/17 06:20 PT 13.0 SECONDS (9.4-12.5) H 04/20/17 17:43 INR 1.19 (0.93-1.08) H 04/20/17 17:43 APTT 29.1 Seconds (25.1-36.5) 04/20/17 17:43 - Constitutional Appears: No Acute Distress - Head Exam Head Exam: ATRAUMATIC, NORMAL INSPECTION, NORMOCEPHALIC - Eye Exam Eye Exam: EOMI, PERRL - ENT Exam ENT Exam: Mucous Membranes Moist - Respiratory Exam Respiratory Exam: Clear to Ausculation Bilateral, NORMAL BREATHING PATTERN. absent: Rales, Rhonchi, Wheezes - Cardiovascular Exam Cardiovascular Exam: REGULAR RHYTHM, +S1, +S2 - GI/Abdominal Exam GI & Abdominal Exam: Soft, Hernia (ventral, reduced), Normal Bowel Sounds. absent: Firm, Guarding - Back Exam Back Exam: NORMAL INSPECTION - Neurological Exam Neurological Exam: Alert, Awake, Normal Gait, Oriented x3 Neuro motor strength exam: Left Upper Extremity: 5, Right Upper Extremity: 5, Left Lower Extremity: 5, Right Lower Extremity: 5 - Psychiatric Exam Psychiatric exam: Normal Affect, Normal Mood - Skin Skin Exam: Dry, Intact Assessment and Plan (1) Ventral hernia with bowel obstruction Status: Acute (2) Ventral hernia Status: Chronic (3) Automatic implantable cardioverter-defibrillator in situ Status: Chronic (4) Cardiomyopathy Status: Chronic (5) Congestive heart failure Status: Chronic - Assessment and Plan (Free Text) Assessment: 72 year old M with pmhx of AICD, 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 Patient evaluated by cardiology and general surgery for potential surgical intervention. Plan: 1. Abdominal Pain ventral hernia vs less likely SBO - IVF D5W 1/2NS - plan to dc fluids once patient able to tolerate diet - prn zofran - Pain control - CT of the abdomen/ pelvis- reviewed and appreciated - Fluid-filled dilated small bowel loops with decompressed small bowel loops distally; appearance concerning for small bowel obstruction. Extensive diverticulosis without CT evidence of acute diverticulitis. Moderate constipation. 16 mm fat containing right ventral hernia. 10 mm fat containing midline ventral hernia. Gastroesophageal reflux - General surgery consulted, recs appreciated. -Patient will not be going to surgery at this time, advance diet as tolerated - NG tube and suction per surgery team 2. Idiopathic cardiomyopathy, hx of ventricular tachycardia with syncope, s/p ablation therapy, MR - HR and BP reviewed, trended, and appreciated - continue home amiodarone, coreg, digoxin, mexiletine with holding parameters - cardiology consulted- appreciate recommendations 3. Chronic CHF - HR and BP reviewed, trended, and appreciated - strict I and O - daily weights - hold lasix and spironolactone to IVF - previous ECHO reviewed and appreciated-- LVEF 16%, LV severely dilated, severe global hypokinesis - Cardiology consulted and following 4. ANNAMARIA - improved - creatinine and Bun reviewed, trended, and appreciated - avoid nephrotoxins 5. Hx of CAD - c/w aspirin - c/w statin 6. Hx of Htn - c/w coreg e with holding parameters - restarted Entresto 7. Hx of Hyperlipidemia - c/w statin - Lipid panel wnl 8. Hx of Hypothyroidism - continue with home synthroid - TSH 5.05 9. Prophylaxis - DVT ppx - SCD - GI ppx- NG suction, plan for pepcied as diet tolerated Case and plan was reviewed and discussed with Dr. Sifuentes
--- NOTE | 2017-04-22 15:10 | PN ---
DATE: 04/22/2017 CARDIOLOGY FOLLOWUP NOTE SUBJECTIVE: The patient's nausea is better with the NG tube. OBJECTIVE: VITAL SIGNS: Blood pressure is 119/62 with the heart rate in the 60s. NECK: Negative JVD. LUNGS: Without rales. HEART: S1 and S2. EXTREMITIES: Without edema. LABORATORY DATA: Hemoglobin is 12.5. Chemistries, BUN and creatinine unremarkable. IMPRESSION: 1. Nausea and vomiting. 2. Abdominal hernia. 3. End-stage dilated cardiomyopathy. 4. Congestive heart failure symptoms, well controlled on current medications. PLAN: Given these findings, the patient is currently followed by surgery. His medications including Entresto has been restarted. Sage Andrew MD
[2017-04-23] MEDS: Dextrose 5%/0.45% NS 1,000 ML IV SCH (04:55)
[2017-04-23 07:00] LABS: BASO # 0.03 K/mm3 (0.0-2.0); BASO % 0.2 % (0.0-3.0); EOS # 0.3 (0.0-0.7); EOS % 2.8 % (1.5-5.0); GRAN # 8.93 (1.4-6.5); GRAN % 73.3 % (50.0-68.0); HEMATOCRIT 36.3 % (42.0-52.0); LYMPH # 1.6 (1.2-3.4); LYMPH % 12.8 % (22.0-35.0); MEAN CELL VOLUME 99.7 fl (80.0-105.0); MEAN CORPUSCULAR HEMOGLOBIN 31.9 pg (25.0-35.0); MEAN PLATELET VOLUME 10.5 fl (7.0-11.0); MONO # 1.3 (0.1-0.6); MONO % 10.9 % (1.0-6.0); RED CELL DISTRIBUTION WIDTH 14.2 % (11.5-14.5); WHITE BLOOD COUNT 12.2 10^3/ul (4.5-11.0)
[2017-04-23] MEDS: MEXILETINE 200 MG PO SCH ×2 (07:06→15:11)
[2017-04-23 07:46] LABS: ALB/GLOB RATIO 1.1 (1.1-1.8); ALKALINE PHOSPHATASE 73 U/L (38-126); ALT/SGPT 24 U/L (7-56); AST/SGOT 28 U/L (17-59); BILIRUBIN,TOTAL 0.6 mg/dL (0.2-1.3); BLOOD UREA NITROGEN 12 mg/dL (7-21); CALCIUM 8.4 mg/dL (8.4-10.5); CARBON DIOXIDE 28 mmol/L (21-33); CHLORIDE 102 mmol/L (98-107); GFR AFRICAN-AMERICAN > 60; GLUCOSE,RANDOM 103 mg/dL (70-110); POTASSIUM 3.5 mmol/L (3.6-5.0); SODIUM 139 mmol/L (132-148); TOTAL PROTEIN 6.2 g/dL (5.8-8.3)
[2017-04-23] MEDS: Levothyroxine 50 MCG TAB PO SCH (07:50)
--- NOTE | 2017-04-23 08:13 | CP.PCM.PN ---
Subjective - Date & Time of Evaluation Date of Evaluation: 04/23/17 Time of Evaluation: 08:10 - Subjective Subjective: Surgery Progress Note for Dr. Barone Pt seen and examined at bedside. No acute overnight events. Pt denied any further nausea or vomiting. Pt states that abdominal pain has subsided. Pt tolerating diet. Pt denied CP, SOB, fever, chills, GERBER, or dizziness. Objective - Vital Signs/Intake and Output Vital Signs (last 24 hours): Temp Pulse Resp BP Pulse Ox 99 F 74 20 110/66 95 04/22/17 17:12 04/22/17 18:38 04/22/17 17:12 04/22/17 18:38 04/22/17 17:12 Intake and Output: 04/23/17 04/23/17 06:59 18:59 Intake Total 540 Output Total 325 Balance 215 - Medications Medications: Current Medications Amiodarone HCl (Cordarone) 200 mg PO DAILY [facility] Last Admin: 04/22/17 10:40 Dose: 200 mg Aspirin (Ecotrin) 81 mg PO DAILY [facility] Atorvastatin Calcium (Lipitor) 20 mg PO DAILY [facility] Last Admin: 04/22/17 10:40 Dose: 20 mg Carvedilol (Coreg) 25 mg PO BID [facility] Last Admin: 04/22/17 18:38 Dose: 25 mg Digoxin (Lanoxin) 0.125 mg PO DAILY [facility] Last Admin: 04/22/17 10:39 Dose: 0.125 mg Heparin Sodium (Porcine) (Heparin) 5,000 units SC Q8 [facility] PRN Reason: Protocol Last Admin: 04/21/17 11:32 Dose: Not Given Home Med (Home Med) 1 unit PO Q8 [facility] Last Admin: 04/23/17 07:06 Dose: 1 unit Hydromorphone HCl (Dilaudid) 0.5 mg IVP Q6H PRN PRN Reason: Pain, moderate (4-7) Last Admin: 04/21/17 04:04 Dose: 0.5 mg Levothyroxine Sodium (Synthroid) 50 mcg PO ACB [facility] Last Admin: 04/22/17 08:00 Dose: 50 mcg Ondansetron HCl (Zofran Inj) 4 mg IVP Q6H PRN PRN Reason: Nausea/Vomiting Last Admin: 04/21/17 11:33 Dose: 4 mg Sacubitril/Valsartan (Entresto 97 Mg-103 Mg Tablet) 1 each PO BID [facility] Last Admin: 04/22/17 18:39 Dose: 1 each - Labs Labs: 04/23/17 05:30 04/23/17 05:30 PT 13.0 SECONDS (9.4-12.5) H 04/20/17 17:43 INR 1.19 (0.93-1.08) H 04/20/17 17:43 APTT 29.1 Seconds (25.1-36.5) 04/20/17 17:43 - Constitutional Appears: No Acute Distress - Head Exam Head Exam: NORMAL INSPECTION - Eye Exam Eye Exam: Normal appearance - ENT Exam ENT Exam: Normal Exam - Neck Exam Neck Exam: Full ROM - Respiratory Exam Respiratory Exam: NORMAL BREATHING PATTERN. absent: Accessory Muscle Use, Respiratory Distress - Cardiovascular Exam Cardiovascular Exam: RRR. absent: Gallop, Rubs, Murmur - GI/Abdominal Exam GI & Abdominal Exam: Soft. absent: Distended, Guarding, Tenderness, Rebound - Extremities Exam Extremities Exam: Normal Inspection - Back Exam Back Exam: NORMAL INSPECTION - Neurological Exam Neurological Exam: Awake, Oriented x3 - Skin Skin Exam: Normal Color Assessment and Plan - Assessment and Plan (Free Text) Assessment: 72 yo M with nausea/vomiting and ventral hernia Plan: - NGT removed - Diet advanced - Ok to DC from surgical standpoint if tolerating diet - F/u with Dr. Barone as outpatient for elective ventral hernia repair - Medical management per primary - DW Dr. Abisai Slaeh, PGY1
[2017-04-23] MEDS ORDERED: Potassium Chloride 20 mEq ER Tab PO ONE (08:17)
[2017-04-23 08:44] VITALS: TEMP 97.8; O2SAT 97
[2017-04-23 08:47] VITALS: BP 106/55
[2017-04-23] MEDS: SACUBITRIL 97mg/ VALSARTAN 103mg tab PO SCH (10:55)
[2017-04-23] MEDS: Digoxin 125 mcg (0.125 mg) Tab PO SCH (11:03)
[2017-04-23 11:10] VITALS: PULSE 60
--- NOTE | 2017-04-23 13:27 | PN ---
CARDIOLOGY FOLLOWUP DATE OF FOLLOWUP: 04/23/2017 SUBJECTIVE: The patient is eating well without problems. The NG tube has been removed. OBJECTIVE: VITAL SIGNS: Blood pressure 106/55, heart rate is in the 70s. NECK: Negative JVP. LUNGS: Without rales. HEART: Reveal S1, S2. EXTREMITIES: Without edema. LABORATORY DATA: Hemoglobin is 11.6. BUN and creatinine are unremarkable. IMPRESSION: 1. Transient nausea and vomiting. 2. Abdominal hernia. 3. End-stage dilated cardiomyopathy. 4. No recurrent congestive heart failure symptoms while on his medications. PLAN: Given these findings, the patient's plan is for discharge soon. We will make sure the patient stays on Entresto at home. Sage Andrew MD
--- NOTE | 2017-04-23 20:41 | CP.PCM.DIS ---
Provider - Provider Date of Admission: 04/21/17 16:27 Attending physician: Carlos Sifuentes MD Primary care physician: Carlos Sifuentes MD Consults: General Surgery: Dr. Arash Barone Cardiology: Dr. Sage Andrew Time Spent in preparation of Discharge (in minutes): 30 Diagnosis - Discharge Diagnosis (1) Ventral hernia with bowel obstruction Status: Acute (2) Ventral hernia Status: Chronic (3) Automatic implantable cardioverter-defibrillator in situ Status: Chronic (4) Cardiomyopathy Status: Chronic (5) Congestive heart failure Status: Chronic Hospital Course - Lab Results Lab Results: Most Recent Lab Values WBC 12.2 10^3/ul (4.5-11.0) H D 04/23/17 05:30 RBC 3.64 10^6/uL (3.5-6.1) 04/23/17 05:30 Hgb 11.6 g/dL (14.0-18.0) L 04/23/17 05:30 Hct 36.3 % (42.0-52.0) L 04/23/17 05:30 MCV 99.7 fl (80.0-105.0) 04/23/17 05:30 MCH 31.9 pg (25.0-35.0) 04/23/17 05:30 MCHC 32.0 g/dl (31.0-37.0) 04/23/17 05:30 RDW 14.2 % (11.5-14.5) 04/23/17 05:30 Plt Count 205 10^3/uL (120.0-450.0) 04/23/17 05:30 MPV 10.5 fl (7.0-11.0) 04/23/17 05:30 Gran % 73.3 % (50.0-68.0) H 04/23/17 05:30 Lymph % (Auto) 12.8 % (22.0-35.0) L 04/23/17 05:30 Dooly % (Auto) 10.9 % (1.0-6.0) H 04/23/17 05:30 Eos % (Auto) 2.8 % (1.5-5.0) 04/23/17 05:30 Baso % (Auto) 0.2 % (0.0-3.0) 04/23/17 05:30 Gran # 8.93 (1.4-6.5) H 04/23/17 05:30 Lymph # 1.6 (1.2-3.4) 04/23/17 05:30 Dooly # 1.3 (0.1-0.6) H 04/23/17 05:30 Eos # 0.3 (0.0-0.7) 04/23/17 05:30 Baso # 0.03 K/mm3 (0.0-2.0) 04/23/17 05:30 PT 13.0 SECONDS (9.4-12.5) H 04/20/17 17:43 INR 1.19 (0.93-1.08) H 04/20/17 17:43 APTT 29.1 Seconds (25.1-36.5) 04/20/17 17:43 Sodium 139 mmol/L (132-148) 04/23/17 05:30 Potassium 3.5 mmol/L (3.6-5.0) L 04/23/17 05:30 Chloride 102 mmol/L (98-107) 04/23/17 05:30 Carbon Dioxide 28 mmol/L (21-33) 04/23/17 05:30 Anion Gap 12 (10-20) 04/23/17 05:30 BUN 12 mg/dL (7-21) 04/23/17 05:30 Creatinine 0.9 mg/dl (0.8-1.5) 04/23/17 05:30 Est GFR ( Amer) > 60 04/23/17 05:30 Est GFR (Non-Af Amer) > 60 04/23/17 05:30 Random Glucose 103 mg/dL (70-110) 04/23/17 05:30 Hemoglobin A1c 5.8 % (4.2-6.5) 04/21/17 06:15 Lactic Acid 1.0 mmol/L (0.7-2.1) 04/22/17 06:20 Calcium 8.4 mg/dL (8.4-10.5) 04/23/17 05:30 Total Bilirubin 0.6 mg/dL (0.2-1.3) 04/23/17 05:30 AST 28 U/L (17-59) 04/23/17 05:30 ALT 24 U/L (7-56) 04/23/17 05:30 Alkaline Phosphatase 73 U/L (38-126) 04/23/17 05:30 Lactate Dehydrogenase 716 U/L (333-699) H 04/20/17 17:43 Total Creatine Kinase 67 U/L (35-230) 04/20/17 17:43 Troponin I 0.02 ng/mL 04/20/17 17:43 Total Protein 6.2 g/dL (5.8-8.3) 04/23/17 05:30 Albumin 3.3 g/dL (3.0-4.8) 04/23/17 05:30 Globulin 2.9 gm/dL 04/23/17 05:30 Albumin/Globulin Ratio 1.1 (1.1-1.8) 04/23/17 05:30 Triglycerides 159 mg/dL (35-160) 04/21/17 06:15 Cholesterol 155 mg/dL (130-200) 04/21/17 06:15 LDL Cholesterol Direct 98 mg/dL (0-129) 04/21/17 06:15 HDL Cholesterol 32 mg/dL (29-60) 04/21/17 06:15 Lipase 48 U/L (23-300) 04/20/17 17:43 TSH 3rd Generation 5.05 mIU/mL (0.46-4.68) H 04/21/17 06:15 Urine Color Yellow (YELLOW) 04/21/17 18:07 Urine Appearance Clear (CLEAR) 04/21/17 18:07 Urine pH 6.0 (4.7-8.0) 04/21/17 18:07 Ur Specific Widen 1.020 (1.005-1.035) 04/21/17 18:07 Urine Protein Negative mg/dL (<30 mg/dL) 04/21/17 18:07 Urine Glucose (UA) Negative mg/dL (NEGATIVE) 04/21/17 18:07 Urine Ketones Negative mg/dL (NEGATIVE) 04/21/17 18:07 Urine Blood Negative (NEGATIVE) 04/21/17 18:07 Urine Nitrate Negative (NEGATIVE) 04/21/17 18:07 Urine Bilirubin Negative (NEGATIVE) 04/21/17 18:07 Urine Urobilinogen 0.2 E.U./dL (<1 E.U./dL) 04/21/17 18:07 Ur Leukocyte Esterase Negative Fátima/uL (NEGATIVE) 04/21/17 18:07 - Hospital Course Hospital Course: Patient is a 72 year old male with a past medical history includes AICD, idiopathic cardiomyopathy, hx of ventricular tachycardia with syncope, s/p ablation therapy, MR, CHF, HTN, HLD, hypothyroidism, pna, who presented to the emergency department for evaluation and treatment of abdominal pain localized to the ventral region superior to the umbilicus. Patient was evaluated with an abdominal CT suggesting SBO vs. fat infiltration through abdominal wall. Patient was made NPO and given IV pain medication. Patient noted to have continued nausea and coffee ground emesis. Patient was placed on IV suction. General surgery was consulted for possible SBO with recommendation for elective outpatient surgery given the patient's significant cardiac history and high risk for complications from anesthesia and surgical intervention. Cardiology was consulted and evaluated the patient with recommendations that the patient would be high risk for surgery. Discussion was conducted with patient regarding the risks and benefits of surgery. Patient decided against surgical intervention at this time with plan for outpatient follow up for possible elective surgery. Patient was hemodynamically stable, normothermic, and euvolemic and discharged with appropriate follow up outpatient. Discharge planning including follow up, medications and prescription for abdominal truss script were discussed and patient was in understanding and in agreement. Imaging: Abdominal/Pelvis CT Chest Xray Chest Xray Diagnosis: Ventral Hernia causing small Bowel Obstruction Ventral Hernia Idiopathic Cardiomyopathy requiring AICD Mitral Regurgitation Hypertension Hyperlipidemia Hypothyroidism - Date & Time of H&P Date of H&P: 04/20/17 Time of H&P: 20:32 Discharge Exam - Head Exam Head Exam: NORMAL INSPECTION - Eye Exam Eye Exam: EOMI, PERRL - ENT Exam ENT Exam: Mucous Membranes Moist - Neck Exam Neck exam: Full Rom - Respiratory Exam Respiratory Exam: Clear to PA & Lateral, NORMAL BREATHING PATTERN - Cardiovascular Exam Cardiovascular Exam: REGULAR RHYTHM, +S1, +S2 - GI/Abdominal Exam GI & Abdominal Exam: Normal Bowel Sounds, Soft. absent: Tenderness Additional comments: Ventral Hernia epigastric region right of linea alba - Extremities Exam Extremities exam: normal capillary refill, normal inspection - Back Exam Back exam: NORMAL INSPECTION - Neurological Exam Neurological exam: Alert, CN II-XII Intact, Normal Gait, Oriented x3 - Psychiatric Exam Psychiatric exam: Normal Affect, Normal Mood - Skin Skin Exam: Dry, Intact, Warm Discharge Plan - Follow Up Plan Condition: GOOD Disposition: HOME/ ROUTINE Instructions: Heart Failure (DC), Heart Failure (GEN), Pacemaker (DC), Pacemaker (GEN), Pulmonary Edema (DC), Hypokalemia (DC), Hypokalemia (GEN), Cigarette Smoking and Your Health (GEN), Open Herniorrhaphy (DC), Laparoscopic Herniorrhaphy (DC), Inguinal Hernia (DC) Additional Instructions: Follow up with primary medical doctor within one week of discharge Follow up with Cardiology outpatient within 1-2 weeks of discharge Follow up with General Surgery and Dr. Barone outpatient for elective ventral hernia repair Fill prescription for an abdominal truss for stabilization of ventral hernia Take caution getting up from laying or seated position to standing Take medications as prescribed to you Continue taking Entresto per Cardiology Return to the hospital if your symptoms worsen or return Referrals: Carlos Sifuentes MD [Primary Care Provider] - Arash Barone MD [Staff Provider] - Sage Andrew MD [Staff Provider] -
== END 2017-04-23 15:29 | disposition home or self-care (01) | DRG 394 ==
LOC: ED 16:53 → ERH 20:17 → 5RNO 21:21 → OBSVTOIN 04-21 16:27
PROVIDERS: ADMIT Internal Medicine; ATTEND Internal Medicine
DX: K43.6 Other and unspecified ventral hernia with obstruction, without gangrene (principal); I42.0 Dilated cardiomyopathy; I11.0 Hypertensive heart disease with heart failure; I50.9 Heart failure, unspecified; I34.0 Nonrheumatic mitral (valve) insufficiency; K57.90 Diverticulosis of intestine, part unspecified, without perforation or abscess without bleeding; E03.9 Hypothyroidism, unspecified; E78.5 Hyperlipidemia, unspecified; I25.10 Atherosclerotic heart disease of native coronary artery without angina pectoris; K21.9 Gastro-esophageal reflux disease without esophagitis; Z79.82 Long term (current) use of aspirin; Z79.899 Other long term (current) drug therapy; Z81.3 Family history of other psychoactive substance abuse and dependence; Z86.79 Personal history of other diseases of the circulatory system; Z87.01 Personal history of pneumonia (recurrent); Z90.49 Acquired absence of other specified parts of digestive tract; Z95.810 Presence of automatic (implantable) cardiac defibrillator; Z98.1 Arthrodesis status; Z88.5 Allergy status to narcotic agent; R40.2412 Glasgow coma scale score 13-15, at arrival to emergency department